=== PATIENT | male | born 1990 | race Caucasian/White ===

== ENCOUNTER 2023-07-28 07:30 | Outpatient (REF) | payer BC, SELFPAY ==
--- NOTE | ~2023-07-28 | CT_ITS ---
EXAMINATION: CT MAXILLOFACIAL WITHOUT CONTRAST CLINICAL INFORMATION: sinonasal polyps, deviated septum COMPARISON: None TECHNIQUE: Multidetector helical imaging was performed in the axial plane using landmarks protocol with generation of coronal and sagittal reformatted images. This CT examination was performed using dose optimization techniques as appropriate, variously including the following: *Automated exposure control *Adjustment of mA and/or kV according to patient size (this includes techniques or standardized protocols for targeted exams where dose is matched to indication/reason for exam; i.e. extremities or head) *Use of iterative reconstruction technique DLP: 77.11 mGy-cm FINDINGS: FRONTAL SINUSES AND DRAINAGE PATHWAYS: The frontal sinuses are clear. The frontal recesses are patent. MAXILLARY SINUSES AND DRAINAGE PATHWAYS: The maxillary sinuses are clear. The maxillary ostia and infundibula are patent. ETHMOID SINUSES: The ethmoid air cells are clear. The ethmoid roofs appear intact and are symmetric. SPHENOID SINUS AND DRAINAGE PATHWAYS: The sphenoid sinus is clear.. The sphenoid ostia and sphenoethmoidal recesses are patent. NASAL PASSAGE: There is partial opacification of the anterior superior nasal cavity. The olfactory recesses are clear. The osseous nasal septum remains midline. ADDITIONAL RELEVANT FINDINGS: The lamina papyracea are intact. No demonstrated abnormalities of the orbits. The carotid canals are normally covered by bone. No significant maxillary periapical disease. The temporomandibular joints are normal. The mastoid air cells and middle ear cavities are well aerated. Limited evaluation of the intracranial structures without significant abnormalities. CT/CT sinus wo IV con IMPRESSION: No active sinus disease.
== END 2023-07-28 07:31 | disposition home or self-care (01) ==
LOC: HO.CT 07:30
PROVIDERS: Visit Provider Otolaryngology
DX: J33.0 Polyp of nasal cavity (principal); J34.2 Deviated nasal septum
CPT/HCPCS: 70486